=== PATIENT | male | born 1945 | race Caucasian/White ===

== ENCOUNTER 2018-02-22 14:58 | Emergency (ER) | payer OTHER ==
[2018-02-22] MEDS ORDERED: LIDOCAINE 2% MPF 5 ML VIAL ONE (15:46)
[2018-02-22] MEDS ORDERED: TETANUS & DIPHTHERIA TOX,ADULT 0.5 ML VIAL ONE (16:27)
--- NOTE | 2018-02-22 16:36 | ER ---
Nurse's Notes [facility] Name: Venkat Smith Age: 72 yrs Sex: Male : 1945 Arrival Date: 02/22/2018 Time: 14:59 Bed 23 Private MD: Joshua Brooks F Diagnosis: Laceration without foreign body of left hand-Left Thumb Presentation: 02/22 15:08 Presenting complaint: Patient states: Using a new knife, cutting something at home, sg when the knife slipped and lacerated his right palm. Transition of care: patient was not received from another setting of care. Complicating Factors: There are no complicating factors for this patient. Onset of symptoms was February 22, 2018. Risk Assessment: Do you want to hurt yourself or someone else? Patient reports no desire to harm self or others. Initial Sepsis Screen: Does the patient meet any 2 criteria? No. Patient's initial sepsis screen is negative. Does the patient have a suspected source of infection? No. Patient's initial sepsis screen is negative. Care prior to arrival: None. 15:08 Method Of Arrival: Ambulatory sg 15:08 Acuity: TONIA 4 sg Triage Assessment: 15:15 General: Appears in no apparent distress. well groomed, well developed, well nourished, kr2 Behavior is calm, cooperative, appropriate for age. Injury Description: Laceration sustained to lateral aspect of left hand. Historical: - Allergies: 15:09 No Known Allergies; sg - Home Meds: 15:09 None [Active]; sg - PMHx: 15:09 None; sg - PSHx: 15:09 None; sg - Immunization history:: Adult Immunizations up to date, Last tetanus immunization: unknown. - Social history:: Smoking status: Patient/guardian denies using tobacco. - Ebola Screening: : Patient negative for fever greater than or equal to 101.5 degrees Fahrenheit, and additional compatible Ebola Virus Disease symptoms Patient denies exposure to infectious person Patient denies travel to an Ebola-affected area in the 21 days before illness onset No symptoms or risks identified at this time. Screenin:15 Abuse screen: Denies threats or abuse. Denies injuries from another. Nutritional kr2 screening: No deficits noted. Tuberculosis screening: No symptoms or risk factors identified. Fall Risk None identified. Assessment: 15:10 General: Appears in no apparent distress. comfortable, well groomed, well developed, kr2 well nourished, Behavior is calm, cooperative, appropriate for age. Pain: Complains of pain in lateral aspect of left hand Pain does not radiate. Pain currently is 3 out of 10 on a pain scale. Quality of pain is described as aching, tender, Pain began 30 min ago. Is continuous, Alleviated by rest. Neuro: Level of Consciousness is awake, alert, obeys commands, Oriented to person, place, time, situation, Appropriate for age Intact. Cardiovascular: Capillary refill < 3 seconds in bilateral fingers Patient's skin is warm and dry. Rhythm is regular. Respiratory: Airway is patent Respiratory effort is even, unlabored, Respiratory pattern is regular, symmetrical. GI: Abdomen is flat, non-distended. Derm: Skin is healthy with good turgor, Skin is pink, warm \T\ dry. Musculoskeletal: Circulation, motion, and sensation intact. Injury Description: Laceration sustained to lateral aspect of left hand is clean, 0.5 to 2.5 cm long, was sustained 30-60 minutes ago. is bleeding a small amount. 16:00 Reassessment: Patient appears in no apparent distress at this time. Patient and/or kr2 family updated on plan of care and expected duration. Pain level reassessed. Patient is alert, oriented x 3, equal unlabored respirations, skin warm/dry/pink. Patient denies pain at this time. Patient states feeling better. 16:30 Reassessment: Patient appears in no apparent distress at this time. Patient and/or kr2 family updated on plan of care and expected duration. Pain level reassessed. Patient is alert, oriented x 3, equal unlabored respirations, skin warm/dry/pink. Patient washed hands with soap and water, dried, antibiotic ointment applied, wrapped with gauze and splint applied. Vital Signs: 15:09 Pulse 62; Resp 17; Temp 96.9; Pulse Ox 100% on R/A; Weight 73.48 kg (R); Height 6 ft. 0 sg in. (182.88 cm) (R); Pain 4/10; 15:15 BP 136 / 70; kr2 16:00 BP 142 / 78; Pulse 68; Resp 16; Pulse Ox 100% on R/A; kr2 15:09 Body Mass Index 21.97 (73.48 kg, 182.88 cm) ED Course: 14:59 Patient arrived in ED. sb2 15:00 Joshua Brooks MD is Private Physician. sb2 15:08 Triage completed. sg 15:08 Arm band placed on. sg 15:09 Fabrizio Smith PA is PHCP. cp 15:09 Fabrizio Baird MD is Attending Physician. cp 15:10 Patient has correct armband on for positive identification. Bed in low position. Call kr2 light in reach. Side rails up X 1. Pulse ox on. NIBP on. Door closed. Head of bed elevated. 16:18 Kamala Reed, KATHIE is Primary Nurse. kr2 16:30 No provider procedures requiring assistance completed. Patient did not have IV access kr2 during this emergency room visit. Administered Medications: 16:20 Drug: Lidocaine (2 %) 5 ml {Note: Administered by ALEAH Doherty.} Volume: 5 ml; Route: kr2 Infiltration; 16:51 Follow up: Response: No adverse reaction; Pain is decreased kr2 16:35 Drug: Tetanus-Diphtheria Toxoid Adult 0.5 ml {Beet Topper: [employer]. Exp: kr2 04/12/2020. Lot #: [id number]. } Route: IM; Site: left deltoid; 16:52 Follow up: Response: No adverse reaction kr2 Outcome: 16:35 Discharge ordered by . cp 16:40 Discharged to home ambulatory. kr2 16:40 Condition: good 16:40 Discharge instructions given to patient, Instructed on discharge instructions, follow up and referral plans. wound care, Splint use Demonstrated understanding of instructions, follow-up care, wound care, splint care. 16:52 Patient left the ED. kr2 Signatures: John Nolasco, RN RN Fabrizio Smith PA TN cp Kamala Reed, KATHIE RN kr2 Radha Stout sb2 Corrections: (The following items were deleted from the chart) 02/23 00:51 12 17:00 No provider procedures requiring assistance completed. kr2 kr2 02/23 00:51 12 17:00 Patient did not have IV access during this emergency room visit. kr2 kr2
--- NOTE | 2018-02-22 16:36 | EDPHYS ---
Physician Documentation [facility] Name: Venkat Smith Age: 72 yrs Sex: Male : 1945 Arrival Date: 02/22/2018 Time: 14:59 Bed 23 Private MD: Joshua Brooks F ED Physician Fabrizio Baird HPI: 02/22 15:35 This 72 yrs old Male presents to ER via Ambulatory with complaints of cp Laceration To Hand. 15:35 The patient has a laceration occurred at home, and there are no complicating factors. cp The laceration(s) is(are) located on the dorsal side of proximal left thumb. Onset: The symptoms/episode began/occurred just prior to arrival. Associated signs and symptoms: Pertinent negatives: heavy bleeding, numbness distal to injury, suspected foreign body. Historical: - Allergies: 15:09 No Known Allergies; sg - Home Meds: 15:09 None [Active]; sg - PMHx: 15:09 None; sg - PSHx: 15:09 None; sg - Immunization history:: Adult Immunizations up to date, Last tetanus immunization: unknown. - Social history:: Smoking status: Patient/guardian denies using tobacco. - Ebola Screening: : Patient negative for fever greater than or equal to 101.5 degrees Fahrenheit, and additional compatible Ebola Virus Disease symptoms Patient denies exposure to infectious person Patient denies travel to an Ebola-affected area in the 21 days before illness onset No symptoms or risks identified at this time. ROS: 15:40 Constitutional: Negative for body aches, chills, fever, poor PO intake. cp 15:40 Skin: Positive for laceration(s), of the dorsal side of proximal left thumb. cp 15:40 Neuro: Negative for numbness, tingling, weakness. 15:40 All other systems are negative. Exam: 15:45 Constitutional: The patient appears in no acute distress, alert, awake, well developed, cp well nourished. 15:45 Head/Face: Normocephalic, atraumatic. cp 15:45 Eyes: Periorbital structures: appear normal. 15:45 ENT: External ear(s): are unremarkable, Nose: is normal, Mouth: is normal. 15:45 Chest/axilla: Inspection: normal. 15:45 Cardiovascular: Rate: normal. 15:45 Respiratory: the patient does not display signs of respiratory distress, Respirations: normal. 15:45 Abdomen/GI: Inspection: abdomen appears normal. 15:45 Musculoskeletal/extremity: ROM: full active range of motion, in the left thumb, Perfusion: the extremity is normally perfused throughout, Sensation intact. Tendon exam: specific tendon testing normal through active and passive range of motion 15:45 Skin: injury, laceration(s), the wound is approximately 3 cm(s), of the dorsal side of proximal left thumb, that can be described as clean, linear, with mild bleeding. Vital Signs: 15:09 Pulse 62; Resp 17; Temp 96.9; Pulse Ox 100% on R/A; Weight 73.48 kg (R); Height 6 ft. 0 sg in. (182.88 cm) (R); Pain 4/10; 15:15 BP 136 / 70; kr2 16:00 BP 142 / 78; Pulse 68; Resp 16; Pulse Ox 100% on R/A; kr2 15:09 Body Mass Index 21.97 (73.48 kg, 182.88 cm) sg Laceration: 16:32 Wound Repair of 3cm ( 1.2in ) subcutaneous laceration to dorsal side left proximal cp thumb. Linear shaped.. Distal neuro/vascular/tendon intact. Anesthesia: Wound infiltrated with 5 mls of 2% lidocaine. Wound prep: Moderate cleansing with hibiclenz by me, Wound irrigation by me. Skin closed with 5 4-0 Prolene using interrupted sutures and sterile technique. Dressed with Bacitracin, 4x4's. Patient tolerated well. MDM: 15:10 Patient medically screened. cp 16:00 Differential diagnosis: superficial laceration, tendon injury, vascular injury. cp 16:35 Data reviewed: vital signs, nurses notes, and as a result, I will discharge patient. cp 16:35 Counseling: I had a detailed discussion with the patient and/or guardian regarding: the cp historical points, exam findings, and any diagnostic results supporting the discharge/admit diagnosis, to return to the emergency department if symptoms worsen or persist or if there are any questions or concerns that arise at home. Response to treatment: the patient's symptoms have markedly improved after treatment. 02/22 15:31 Order name: Prolene, Sutures; Complete Time: 15:33 cp 02/22 15:31 Order name: Dressing - Wound; Complete Time: 15:33 cp 02/22 15:31 Order name: Gloves, Sterile; Complete Time: 15:33 cp 02/22 15:31 Order name: Setup Suture Tray; Complete Time: 15:33 cp 02/22 16:32 Order name: Splint - Thumb Spica; Complete Time: 16:35 cp 02/22 16:32 Order name: Wound dressing; Complete Time: 16:35 cp Administered Medications: 16:20 Drug: Lidocaine (2 %) 5 ml {Note: Administered by ALEAH Doherty.} Volume: 5 ml; Route: kr2 Infiltration; 16:51 Follow up: Response: No adverse reaction; Pain is decreased kr2 16:35 Drug: Tetanus-Diphtheria Toxoid Adult 0.5 ml {Hyper[employer]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 Exp: kr2 04/12/2020. Lot #: [id number]. } Route: IM; Site: left deltoid; 16:52 Follow up: Response: No adverse reaction kr2 Disposition: 17:00 Chart complete. cp Disposition: 02/22/18 16:35 Discharged to Home. Impression: Laceration without foreign body of left hand - Left Thumb. - Condition is Stable. - Discharge Instructions: Laceration Care, Adult. - Medication Reconciliation Form, Thank You Letter, Antibiotic Education, Prescription Opioid Use form. - Follow up: Private Physician; When: 7 - 10 days; Reason: Staple/Suture removal. - Problem is new. - Symptoms have improved. Addendum: 02/24/2018 07:26 Co-signature as Attending Physician, Fabrizio Baird MD I agree with the assessment and c mg plan of care. Signatures: John Nolasco, RN Fabrizio Denise MD MD cha Page, Corey, PA PA cp Kamala Reed RN RN kr2 Corrections: (The following items were deleted from the chart) 02/22 16:52 16:35 02/22/2018 16:35 Discharged to Home. Impression: Laceration without foreign body kr2 of left hand - Left Thumb. Condition is Stable. Forms are Medication Reconciliation Form, Thank You Letter, Antibiotic Education, Prescription Opioid Use. Follow up: Private Physician; When: 7 - 10 days; Reason: Staple/Suture removal. Problem is new. Symptoms have improved. cp
[2018-02-22] MEDS ORDERED: MUPIROCIN 2% OINT 22GM TUBE TOP ONE (16:48)
== END 2018-02-22 16:52 | disposition home or self-care (01) ==
LOC: ER 14:58
PROC: 0JQK0ZZ Repair Left Hand Subcutaneous Tissue and Fascia, Open Approach (ICD-10-PCS; principal; 2018-02-22)
DX: S61.012A Laceration without foreign body of left thumb without damage to nail, initial encounter (principal); Z23 Encounter for immunization; W26.0XXA Contact with knife, initial encounter; Y92.009 Unspecified place in unspecified non-institutional (private) residence as the place of occurrence of the external cause
CPT/HCPCS: 90714; 99283

== ENCOUNTER 2022-05-08 16:10 | Emergency (ER) | payer OTHER ==
[2022-05-08 17:32] LABS: Absolute Lymphocytes (CBC) 1.9 K/uL (0.7-4.9); Hematocrit 45.5 % (39.6-49.0); Lymphocytes % 32.6 % (15.3-44.8); MCV 94.3 fL (80-100); MPV 9.3 fL (7.6-11.3); RBC Red Blood Cell Count 4.82 M/uL (4.33-5.43)
[2022-05-08] MEDS ORDERED: MAGNESIUM SULFATE 1 gm IVPB 1 GM/100 ML BAG IV ONE (17:43)
[2022-05-08 17:55] LABS: SARS-CoV-2 Antigen Rapid Res Negative (Negative)
[2022-05-08 17:56] LABS: Potassium 3.7 mmol/L (3.5-5.1); Troponin High Sensitivity 4.9 pg/mL (<58.9)
--- NOTE | 2022-05-08 18:12 | RAD REPORT ---
EXAM DESCRIPTION: RAD - Chest Single View - 05/08/2022 5:43 pm CLINICAL HISTORY: CHEST PAIN Chest pain. COMPARISON: CHEST PA AND LAT 2 VIEW dated 08/04/2010 FINDINGS: Portable technique limits examination quality. The lungs are grossly clear. The heart is normal in size. No displaced fractures. IMPRESSION: No acute intrathoracic process suspected.
--- NOTE | 2022-05-08 18:27 | ER ---
Nurse's Notes [facility] Name: Venkat Smith Age: 77 yrs Sex: Male : 1945 Arrival Date: 05/08/2022 Time: 16:14 Bed 6 Private MD: Jamila Kahn C Diagnosis: Near syncope;Palpitations;Ventricular premature depolarization Presentation: 05/08 16:29 Chief complaint: Patient states: Eating chocolate cake and just started vomiting and jl7 went unresponsive, diaphoretic. EMS n scene did EKG and shows NSR with frequent PVCs. Coronavirus screen: Vaccine status: Patient reports receiving the 2nd dose of the covid vaccine. At this time, the client does not indicate any symptoms associated with coronavirus-19. Ebola Screen: No symptoms or risks identified at this time. Initial Sepsis Screen: Does the patient meet any 2 criteria? No. Patient's initial sepsis screen is negative. Does the patient have a suspected source of infection? No. Patient's initial sepsis screen is negative. Risk Assessment: Do you want to hurt yourself or someone else? Patient reports no desire to harm self or others. Onset of symptoms was May 08, 2022. 16:29 Method Of Arrival: Ambulatory [facility] 16:29 Acuity: TONIA 2 jl7 Triage Assessment: 16:33 General: Appears in no apparent distress. uncomfortable, Behavior is calm, cooperative, jl7 appropriate for age. Pain: Denies pain. Neuro: [place] Agitation-Sedation Scale (RASS): 0 - Alert and Calm Level of Consciousness is awake, alert, obeys commands, Oriented to person, place, time, situation. Cardiovascular: Patient's skin is warm and dry. Respiratory: Airway is patent Respiratory effort is even, unlabored, Respiratory pattern is regular, symmetrical. Derm: Skin is pink, warm \T\ dry. Historical: - Allergies: 16:33 Lidocaine; jl7 - Home Meds: 16:33 None [Active]; jl7 - PMHx: 16:33 None; jl7 - Immunization history:: Client reports receiving the 2nd dose of the Covid vaccine. - Social history:: Smoking status: Patient denies any tobacco usage or history of. - Family history:: not pertinent. - Hospitalizations: : No recent hospitalization is reported. Screenin:37 [facility] ED Fall Risk Assessment (Adult) History of falling in the last 3 months, kc6 including since admission No falls in past 3 months (0 pts) Confusion or Disorientation No (0 pts) Intoxicated or Sedated No (0 pts) Impaired Gait No (0 pts) Mobility Assist Device Used No (0 pt) Altered Elimination No (0 pt) Score/Fall Risk Level 0 - 2 = Low Risk Oriented to surroundings, Maintained a safe environment, Educated pt \T\ family on fall prevention, incl call for assistance when getting out of bed, Assessed \T\ reinforced patient's understanding of fall precautions, Hourly rounding (assess needs \T\ fall precautionary measures) done. Abuse screen: Denies threats or abuse. Denies injuries from another. Nutritional screening: No deficits noted. Tuberculosis screening: No symptoms or risk factors identified. Assessment: 16:41 Reassessment: Dr. Hernandez in triage assessing pt. jl7 17:35 General: Appears in no apparent distress. comfortable, Behavior is calm, cooperative, kc6 appropriate for age. Pain: Denies pain. Neuro: [place] Agitation-Sedation Scale (RASS): 0 - Alert and Calm Level of Consciousness is awake, alert, obeys commands, Oriented to person, place, time, situation, Appropriate for age. Cardiovascular: Heart tones S1 S2 present Capillary refill < 3 seconds. Cardiovascular: Reports nausea, vomiting, Denies lightheadedness, Chest pain is denied. Respiratory: Airway is patent Trachea midline Respiratory effort is even, unlabored, Respiratory pattern is regular, symmetrical. GI: Reports nausea, vomiting, Patient currently denies diarrhea. : No signs and/or symptoms were reported regarding the genitourinary system. EENT: No signs and/or symptoms were reported regarding the EENT system. Derm: No signs and/or symptoms reported regarding the dermatologic system. Skin is intact, Skin is pink, warm \T\ dry. Musculoskeletal: No signs and/or symptoms reported regarding the musculoskeletal system. Circulation, motion, and sensation intact. Capillary refill < 3 seconds, Range of motion: intact in all extremities. 18:35 Reassessment: Patient appears in no apparent distress at this time. No changes from kc6 previously documented assessment. Patient and/or family updated on plan of care and expected duration. Pain level reassessed. Patient is alert, oriented x 3, equal unlabored respirations, skin warm/dry/pink. Vital Signs: 16:29 BP 124 / 66; Pulse 63; Resp 17; Temp 98; Pulse Ox 95% ; Weight 73.03 kg; Height 5 ft. 8 jl7 in. (172.72 cm); Pain 0/10; 16:29 Body Mass Index 24.48 (73.03 kg, 172.72 cm) jl7 ED Course: 16:14 Patient arrived in ED. rg4 16:14 Jamila Kahn MD is Private Physician. rg4 16:33 Triage completed. jl7 16:33 Arm band placed on right wrist. Patient placed in waiting room, Patient notified of jl7 wait time. EKG completed in triage. Results shown to MD. 16:35 Fabrizio Smith PA is PHCP. cp 16:35 Nick Hernandez MD is Attending Physician. cp 16:37 Nick Hernandez MD is Attending Physician. ms3 17:30 Ranjana Lora, KATHIE is Primary Nurse. ld1 17:31 Catalina Ferrari RN is Primary Nurse. kc6 17:37 Patient has correct armband on for positive identification. Placed in gown. Bed in low kc6 position. Call light in reach. Side rails up X2. Adult w/ patient. 17:45 SARS RAPID Sent. kc6 18:27 Tahir Garcia MD is Referral Physician. rn 18:40 No provider procedures requiring assistance completed. kc6 18:40 IV discontinued, intact, bleeding controlled, No redness/swelling at site. Pressure kc6 dressing applied. Administered Medications: 17:45 Drug: Magnesium Sulfate 1 grams Route: IVPB; Infused Over: 1 hrs; Site: left hand; kc6 05/09 07:35 Follow up: Response: No adverse reaction; IV Status: Completed infusion kc6 Medication: 05/08 18:40 VIS not applicable for this client. kc6 Outcome: 18:27 Discharge ordered by . rn 18:40 Discharged to home ambulatory, with significant other. kc6 18:40 Condition: stable 18:40 Discharge instructions given to patient, significant other, Instructed on discharge instructions, follow up and referral plans. Demonstrated understanding of instructions, follow-up care. 18:42 Patient left the ED. kc6 Signatures: Nick Hernandez MD MD rn Page, Corey, PA PA cp Garcia, Rubi rg4 Tobias Arrington RN RN jl7 Chaim Holland, DO ALICEA ms3 Ranjana Lora RN RN ld1 Catalina Ferrari RN RN kc6 Corrections: (The following items were deleted from the chart) 16:34 16:33 Allergies: No Known Allergies; amado jl7
--- NOTE | 2022-05-08 18:28 | EDPHYS ---
Physician Documentation [facility] Name: Venkat Smith Age: 77 yrs Sex: Male : 1945 Arrival Date: 05/08/2022 Time: 16:14 Bed 6 Private MD: Jamila Kahn C ED Physician Nick Hernandez HPI: 05/08 17:15 This 77 yrs old Male presents to ER via Ambulatory with complaints of Palpitations. rn 17:15 The patient presents with a history of irregular heart beat. Context: The symptoms rn occur at rest. Onset: The symptoms/episode began/occurred just prior to arrival. Duration: The patient or guardian reports a single episode. Modifying factors: The symptoms are aggravated by nothing. The symptoms are alleviated by rest. Severity of symptoms: At their worst the symptoms were moderate in the emergency department the symptoms have improved. The patient has experienced similar episodes in the past. The patient has not recently seen a physician. reports patient was at rest, looked like passing out, doesn't think he completely passed out, no chest pain, no seizure activity. states has happened before but in setting of getting lidocaine. Has had previous heart cath with stent 2 years ago. Feels better now but not completely back to normal. . Historical: - Allergies: 16:33 Lidocaine; jl7 - Home Meds: 16:33 None [Active]; jl7 - PMHx: 16:33 None; jl7 - Immunization history:: Client reports receiving the 2nd dose of the Covid vaccine. - Social history:: Smoking status: Patient denies any tobacco usage or history of. - Family history:: not pertinent. - Hospitalizations: : No recent hospitalization is reported. ROS: 17:15 Constitutional: Negative for fever, chills, + diaphoresis Eyes: Negative for injury, rn pain, redness, and discharge, Cardiovascular: + palpitations Respiratory: Negative for shortness of breath, cough, wheezing, and pleuritic chest pain, Abdomen/GI: Negative for abdominal pain, nausea, vomiting, diarrhea, and constipation, Back: Negative for injury and pain, MS/Extremity: Negative for injury and deformity, Skin: Negative for injury, rash, and discoloration, Neuro: Negative for headache, weakness, numbness, tingling, and seizure. Exam: 17:15 Constitutional: This is a well developed, well nourished patient who is awake, alert, rn and in no acute distress. Head/Face: Normocephalic, atraumatic. Cardiovascular: Regular rate, irregular rhythm Respiratory: No increased work of breathing, no retractions or nasal flaring. Abdomen/GI: soft, non-tender Skin: Warm, dry, no cyanosis MS/ Extremity: Pulses equal, no cyanosis. Neuro: Awake and alert, GCS 15 Vital Signs: 16:29 BP 124 / 66; Pulse 63; Resp 17; Temp 98; Pulse Ox 95% ; Weight 73.03 kg; Height 5 ft. 8 jl7 in. (172.72 cm); Pain 0/10; 16:29 Body Mass Index 24.48 (73.03 kg, 172.72 cm) jl7 MDM: 17:28 Patient medically screened. rn 18:17 Differential diagnosis: arrythmia, dehydration, stress disorder, syncope, near syncope. rn Data reviewed: vital signs, nurses notes, lab test result(s), EKG, radiologic studies, plain films, and as a result, I will admit patient. Consideration of Admission/Observation Escalation of care including admission/observation considered. Management of patient was discussed with the following: Primary Care Provider: Management of case discussed with Dr. Kahn. Historians other than the Patient: Spouse/Significant Other: now clarifies that pt did not have cardiac arrest or stent last time this happened. . 18:20 Independent interpretation of the following test(s) in the Emergency Department EKG: rn See my EKG interpretation above X-Ray: My interpretation is CXR neg for pneumothorax or pneumonis. Counseling: I had a detailed discussion with the patient and/or guardian regarding: the historical points, exam findings, and any diagnostic results supporting the discharge/admit diagnosis, lab results, radiology results, the need for further work-up and treatment in the hospital. Response to treatment: the patient's symptoms have resolved after treatment, the patient's condition has returned to base line, the patient is now symptom free, and as a result, I will admit patient. ED course: Pt with neg w/u here, still most likely arrhythmia as cause of symptoms, recommended admission on multiple discussions with patient, patient wants to go home, discussed case with Dr. Kahn. Pt and understand risks of leaving without further w/u or admission.. 05/08 16:39 Order name: Basic Metabolic Panel [facility] 05/08 16:39 Order name: CBC with Diff [facility] 05/08 16:39 Order name: Troponin HS [facility] 05/08 16:44 Order name: SARS RAPID rn 05/08 17:53 Order name: CBC with Automated Diff; Complete Time: 18:05 EDMS 05/08 17:55 Order name: SARS-COV-2 Antigen Rapid; Complete Time: 18:05 EDMS 05/08 16:39 Order name: XRAY Chest (1 view) [facility] 05/08 16:39 Order name: EKG; Complete Time: 16:40 [facility] 05/08 16:39 Order name: Cardiac monitoring; Complete Time: 16:39 [facility] 05/08 16:39 Order name: EKG - Nurse/Tech; Complete Time: 16:39 [facility] 05/08 17:57 Order name: Basic Metabolic Panel; Complete Time: 18:05 EDMS 05/08 17:57 Order name: Troponin High Sensitivity; Complete Time: 18:05 EDMS 05/08 18:14 Order name: RAD; Complete Time: 18:20 EDRI 05/08 16:39 Order name: IV Saline Lock; Complete Time: 17:32 [facility] 05/08 16:39 Order name: Labs collected and sent; Complete Time: 17:32 [facility] 05/08 16:39 Order name: O2 Per Protocol; Complete Time: 16:39 [facility] 05/08 16:39 Order name: O2 Sat Monitoring; Complete Time: 16:39 Administered Medications: 17:45 Drug: Magnesium Sulfate 1 grams Route: IVPB; Infused Over: 1 hrs; Site: left hand; [facility] 05/09 07:35 Follow up: Response: No adverse reaction; IV Status: Completed infusion [facility] Disposition Summary: 05/08/22 18:27 Discharge Ordered Location: Home rn Problem: new rn Symptoms: have improved rn Condition: Stable rn Diagnosis - Near syncope rn - Palpitations rn - Ventricular premature depolarization rn Followup: rn - With: Tahir Garcia MD - When: 2 - 3 days - Reason: Recheck today's complaints, Re-evaluation by your physician Discharge Instructions: - Discharge Summary Sheet rn - Near-Syncope rn - Palpitations rn - Premature Ventricular Contraction rn Forms: - Medication Reconciliation Form rn - Thank You Letter rn - Antibiotic investigator internal revenue - Prescription Opioid Use rn Signatures: Dispatcher [employer] Nick Benitez MD MD rn Leal, Jahala RN RN jl7 Catalina Ferrari RN RN [id number] Corrections: (The following items were deleted from the chart) 05/08 16:34 16:33 Allergies: No Known Allergies; amado fischer
[2022-05-08 18:47] VITALS: BP 124/66; TEMP 98; O2SAT 95
--- NOTE | 2022-05-09 12:59 | EKG ---
Test Date: 2022-05-08 Test Time: 16:36:38 Dietetics Director: TM MEASUREMENT RESULTS: Intervals: Rate: 63 [place]: 188 QRSD: 78 QT: 404 QTc: 413 [place]: P: 34 [place]: 188 QRS: 15 T: 22 INTERPRETIVE STATEMENTS: Sinus rhythm with occasional premature ventricular complexes Minimal voltage criteria for LVH, may be normal variant Borderline ECG No previous ECG available for comparison Electronically Signed On 05-09-22 12:58:18 SALES APPRENTICE by Tahir Garcia
== END 2022-05-08 18:42 | disposition home or self-care (01) ==
LOC: ER 16:10
DX: I49.3 Ventricular premature depolarization (principal); R55 Syncope and collapse; Z20.822 Contact with and (suspected) exposure to COVID-19; Z88.5 Allergy status to narcotic agent
CPT/HCPCS: 85025; 80048; 36415; 84484; 71045; 87811; J3475; 93005